=== PATIENT | female | born 1975 | race African-American/Black ===

== ENCOUNTER 2017-06-30 09:34 | Emergency (ER) | payer OTHER ==
[~2017-06-30] VITALS: Ht 160 cm; Wt 74.4 kg
[~2017-06-30 09:34] MED LIST: ACETAMINOPHEN325 MG PO; ANTIVERT25 MG PO; ASPIR 8181 M1 PO; ASPIRIN325 PO; CLONIDINE0.1 PO; COLACE100 MG PO; COZAAR 50 MG TA50 M2 PO; IRBESARTAN150 MG PO; LISINOPRIL10 MG; NAPROSYN500 MG PO; NORCO 5-325 TA1 EACH PO; NORVASC 5 MG TAB5 MG PO; NORVASC10 MG PO; PHENERGAN 25 MG25 M1 PO; PRILOSEC 20 MG20 MG PO; PROMS25 WY RECTAL; PROTONIX40 MG PO; ZOFRAN ODT4 MG PO
[2017-06-30] MEDS ORDERED: TESSALON PERLE100 MG PO (10:17)
[2017-06-30 10:35] VITALS: BP 214/134
== END 2017-06-30 10:35 | disposition home or self-care (01) ==
LOC: ER 09:34
DX: J00 Acute nasopharyngitis [common cold] (principal); R05 Cough; I10 Essential (primary) hypertension; F17.210 Nicotine dependence, cigarettes, uncomplicated; Z90.49 Acquired absence of other specified parts of digestive tract

== ENCOUNTER 2018-07-13 08:23 | Emergency (ER) | payer OTHER ==
[~2018-07-13] VITALS: Ht 160 cm; Wt 82.6 kg
[~2018-07-13 08:23] MED LIST changes: +TESSALON PERLE100 MG PO
[2018-07-13] MEDS ORDERED: COZAAR 50 MG TA50 M1 PO (08:44)
[2018-07-13] MEDS ORDERED: NAPROSYN500 MG PO (10:43)
[2018-07-13] MEDS ORDERED: ROBAXIN 750 MG750 M1 PO (10:43)
[2018-07-13 10:44] VITALS: BP 187/99
== END 2018-07-13 10:58 | disposition home or self-care (01) ==
LOC: ER 08:23
DX: M54.12 Radiculopathy, cervical region (principal); I10 Essential (primary) hypertension; Z90.49 Acquired absence of other specified parts of digestive tract; F17.210 Nicotine dependence, cigarettes, uncomplicated

== ENCOUNTER 2020-06-26 10:14 | Emergency (ER) | payer OTHER ==
[~2020-06-26] VITALS: Ht 160 cm; Wt 92.1 kg
[~2020-06-26 10:14] MED LIST changes: +COZAAR 50 MG TA50 M1 PO; +LABETALOL HCL300 MG PO; +ROBAXIN 750 MG750 M1 PO
[2020-06-26 10:30] VITALS: BP 153/87
== END 2020-06-26 11:37 | disposition home or self-care (01) ==
LOC: ER 10:14
DX: J02.9 Acute pharyngitis, unspecified (principal); R19.7 Diarrhea, unspecified; R05 Cough; I10 Essential (primary) hypertension; F17.210 Nicotine dependence, cigarettes, uncomplicated; Z20.822 Contact with and (suspected) exposure to COVID-19; Z98.51 Tubal ligation status; E78.5 Hyperlipidemia, unspecified; Z90.49 Acquired absence of other specified parts of digestive tract; Z79.899 Other long term (current) drug therapy

== ENCOUNTER 2021-01-09 14:37 | Emergency (ER) | payer OTHER ==
[~2021-01-09] VITALS: Ht 160 cm; Wt 92.1 kg
[2021-01-09 15:46] LABS: ABSOLUTE NEUTROPHILS 4.1 thou/uL (1.4-8.2); BASOPHILS 0.4 % (0.0-2.0); HEMATOCRIT 47.3 % (37.0-47.0); HEMOGLOBIN 16.3 gm/dL (12.0-15.0); LYMPHOCYTES 35.9 % (24.0-44.0); MCH 31.7 pg (26.0-34.0); MCHC 34.4 g/dL (28.0-37.0); MONOCYTES 7.8 % (1.0-8.0); PLATELET COUNT 300 thou/uL (150-400); POLYS 54.9 % (36.0-66.0); RBC 5.15 mil/uL (4.20-5.00); RDW 13.6 % (10.5-14.5); WBC 7.5 thou/uL (4.0-11.0)
[2021-01-09 15:50] LABS: CALCIUM 9.8 mg/dL (8.5-10.1); CREATININE 0.9 mg/dL (0.6-1.0); POTASSIUM 3.7 mmol/L (3.5-5.1)
[2021-01-09 16:00] LABS: ALBUMIN 4.3 g/dL (3.4-5.0); TOTAL BILIRUBIN 0.4 mg/dL (0.2-1.0); TROPONIN-I 0.06 ng/mL (<0.06)
[2021-01-09 17:32] VITALS: BP 158/95
--- NOTE | 2021-01-09 20:06 | EKG ---
[place] [address] [facility] [place] [address] ELECTROCARDIOGRAM REPORT Name: PREET HARTMAN Room #: REG TU Peace#: [id number] Admission: 01/09/21 Attend Phys: Discharge: Date of : 79 Report #: [id number] [facility] ED Test Date: 2021-01-09 Test Time: 14:48:48 Pat Name: PREET HARTMAN Department: Room: Gender: F [employer]: BOB : 1975 Requested By: Edvin Macdonald Order Number: [id number] MD: Enrique Nguyen Measurements Intervals [place] Rate: 76 P: 16 WA: 149 QRS: 57 QRSD: 105 T: -17 QT: 373 QTc: 420 Interpretive Statements Sinus rhythm Probable left atrial enlargement Borderline T abnormalities, diffuse leads Compared to ECG 12/11/2018 19:27:36 T-wave abnormality now present Sinus bradycardia no longer present Electronically Signed On 01-09-2021 20:06:28 CDT by Enrique Nguyen [email or web address] <ELECTRONICALLY SIGNED> By: Enrique Nguyen MD, [facility] 01/09/212005 [id number] 144 Enrique Nguyen MD, FACC /EPI
== END 2021-01-09 19:09 | disposition left against medical advice (07) ==
LOC: ER 14:37
PROVIDERS: Emergency Medicine
DX: I10 Essential (primary) hypertension (principal); E78.5 Hyperlipidemia, unspecified; F17.210 Nicotine dependence, cigarettes, uncomplicated; Z98.51 Tubal ligation status; Z90.49 Acquired absence of other specified parts of digestive tract; Z79.899 Other long term (current) drug therapy